=== PATIENT | male | born 1975 | race Caucasian/White ===

== ENCOUNTER 2016-07-04 11:24 | Emergency (ER) | payer MEDICAID ==
[2016-04-14 12:17] VITALS: BMI 17.7
[~2016-07-04 11:24] MED LIST: BUSPAR10 MG PO; LOVENOX30 MG/0.3 SC
== END 2016-07-04 14:12 | disposition home or self-care (01) ==
LOC: D.ER 11:24
DX: R07.81 Pleurodynia (principal); M67.874 Other specified disorders of tendon, left ankle and foot; F17.200 Nicotine dependence, unspecified, uncomplicated

== ENCOUNTER 2016-09-03 18:16 | Emergency (ER) | payer MEDICAID ==
[2016-04-14 12:17] VITALS: BMI 17.7
[2016-09-03 20:06] LABS: BASOPHILS 0.3 % (0.0-2.0); EOSINOPHILS 0.7 % (0-7); HEMATOCRIT 43.2 % (42.0-54.0); HEMOGLOBIN 14.1 g/dL (13.5-17.5); IMMATURE GRANULOCYTES 0.1 % (0-5); LYMPHOCYTES 13.1 % (15-50); MCH 25.3 pg (26.0-34.0); MCHC 32.6 g/dL (31.0-37.0); MCV 77.4 fL (80.0-100.0); MEAN PLATELET VOLUME 10.4 fL (7.4-10.4); MONOCYTES 16.2 % (2-11); NEUTROPHILS 69.6 % (40-80); RBC 5.58 10x6/uL (4.20-6.10); RDW 17.6 % (11.5-14.5); WBC 9.2 10x3/uL (4.8-10.8)
[2016-09-03 20:08] LABS: PLATELET COUNT 188 10x3/uL (130-400)
[2016-09-03 20:20] LABS: ALBUMIN 3.8 g/dL (3.4-5.0); ALKALINE PHOSPHATASE 72 U/L (46-116); ALT (SGPT) 26 U/L (10-68); BILIRUBIN - TOTAL 0.17 mg/dL (0.2-1.3); CALC OSMOLALITY 272 mosm/kg (275-300); CARBON DIOXIDE 30.2 mmol/L (21.0-32.0); CHLORIDE - SERUM 100 mmol/L (98-107); CREATININE - SERUM 1.1 mg/dL (0.6-1.3); GLUCOSE 112 mg/dL (74-106); POTASSIUM - SERUM 4.2 mmol/L (3.5-5.1); PROTEIN - SERUM 7.6 g/dL (6.4-8.2); SODIUM 137 mmol/L (136-145); UREA NITROGEN 6 mg/dL (7-18); eGFR NON AFRICAN AMERICAN 79 mL/min (90-120)
== END 2016-09-03 22:04 | disposition home or self-care (01) ==
LOC: D.ER 18:16
PROVIDERS: Physician Assistant Medical
DX: J11.1 Influenza due to unidentified influenza virus with other respiratory manifestations (principal); R50.9 Fever, unspecified; Z87.820 Personal history of traumatic brain injury; F17.200 Nicotine dependence, unspecified, uncomplicated